=== PATIENT | male | born 1970 | race Caucasian/White ===

== ENCOUNTER 2021-06-23 06:08 | Observation (INO) ==
--- NOTE | 2021-06-08 12:43 | PAT Medication Instructions ---
Medication Instructions Date of Service June 08, 2021 Home Medications dicyclomine 10 mg capsule 10 mg PO BID fluticasone propionate 50 mcg/actuation nasal spray,suspension (Flonase Allergy Relief) 2 spray INTRANASAL HS loratadine 10 mg tablet 10 mg PO DAILY pantoprazole 20 mg tablet,delayed release (Protonix) 20 mg PO QAM sertraline 50 mg tablet 50 mg PO DAILY trazodone 50 mg tablet 50 mg PO HS triamterene 75 mg-hydrochlorothiazide 50 mg tablet 1 tab PO DAILY escitalopram oxalate 10 mg tablet (Lexapro) 10 mg PO DAILY gabapentin 300 mg capsule (Neurontin) 600 mg PO HS meclizine 25 mg tablet 25 mg PO TID PRN metformin 1,000 mg tablet 1,000 mg PO BID nabumetone 500 mg tablet 500 mg PO BID tramadol 50 mg tablet 50 mg PO Q8H PRN Continue as directed sertraline 50 mg tablet 50 mg PO DAILY escitalopram oxalate 10 mg tablet (Lexapro) 10 mg PO DAILY ASK your surgeon for instructions nabumetone 500 mg tablet 500 mg PO BID DO NOT take the morning of surgery dicyclomine 10 mg capsule 10 mg PO BID loratadine 10 mg tablet 10 mg PO DAILY triamterene 75 mg-hydrochlorothiazide 50 mg tablet 1 tab PO DAILY metformin 1,000 mg tablet 1,000 mg PO BID Take morning of surgery With a small sip of water, OTHERWISE NOTHING TO EAT OR DRINK AFTER MIDNIGHT: pantoprazole 20 mg tablet,delayed release (Protonix) 20 mg PO QAM meclizine 25 mg tablet 25 mg PO TID PRN (if needed) tramadol 50 mg tablet 50 mg PO Q8H PRN (okay to take up to 4 hours prior to surgery if needed) Take evening before surgery dicyclomine 10 mg capsule 10 mg PO BID fluticasone propionate 50 mcg/actuation nasal spray,suspension (Flonase Allergy Relief) 2 spray INTRANASAL HS trazodone 50 mg tablet 50 mg PO HS gabapentin 300 mg capsule (Neurontin) 600 mg PO HS meclizine 25 mg tablet 25 mg PO TID PRN (if needed) metformin 1,000 mg tablet 1,000 mg PO BID tramadol 50 mg tablet 50 mg PO Q8H PRN (if needed) Other Notes If you have any questions please call us at [phone] or [phone] or [phone] or [phone]
--- NOTE | 2021-06-09 11:27 | Anesthesiology Consultation ---
Date of Service June 09, 2021 Assessment & Plan (1) Encounter for pre-operative examination: Chart Review Chart Review: Acceptable Risk for Surgery (pending PCP clearance 06/11 and preop Covid testing results ) and Patient seen in Pre Admission Testing Awaiting PCP appt scheduled 06/11/21 - Check BSG AM DOS Per PAT appt on 06/09/21, patient resides and works in [facility]. 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 Usually stays home (only goes to work). No known Covid positive contacts or Covid related symptoms. Pt is NOT vaccinated for Covid. No known Covid infection in the past 90 days. Preop Covid testing scheduled 06/21/21= will await results. Educated on importance of self quarantining, social distancing and wearing mask in public both for the pa tient after Covid testing done Teaching & Discussion Pre-Anesthesia Teaching/Discussion Notes: Instructed NPO after midnight before surgery,except medications with 15 cc of water. Medication instructions provided according to the PAT guidelines. History Surgery Operation Date: 06/23/21 07:45 Proposed Procedures p C5-C7 Anterior Cervical Discectomy Fusion, Spinal Cord Monitoring - Bhargav Miranda DO Height/Weight Height: 6 ft 1 in Weight: 132.2 kg Allergies Allergy/AdvReac Type Severity Reaction Status Date / Time iodine AdvReac Unknown FAINTS AT Verified 06/03/21 11:08 THE SMELL OF IODINE Medications Home Medications Medication Instructions Recorded Confirmed Last Taken dicyclomine 10 mg capsule 10 mg PO BID 07/27/18 06/03/21 Unknown fluticasone propionate 50 2 spray INTRANASAL 07/27/18 06/03/21 Unknown mcg/actuation nasal spray,suspension (Flonase Allergy Relief) loratadine 10 mg tablet 10 mg PO DAILY 07/27/18 06/03/21 Unknown pantoprazole 20 mg tablet,delayed 20 mg PO QAM 07/27/18 06/03/21 Unknown release (Protonix) sertraline 50 mg tablet 50 mg PO DAILY 07/27/18 06/03/21 Unknown trazodone 50 mg tablet 50 mg PO HS 07/27/18 06/03/21 Unknown triamterene 75 1 tab PO DAILY 07/27/18 06/03/21 Unknown mg-hydrochlorothiazide 50 mg tablet escitalopram oxalate 10 mg tablet 10 mg PO DAILY 06/03/21 06/03/21 Unknown (Lexapro) gabapentin 300 mg capsule 600 mg PO HS 06/03/21 06/03/21 Unknown (Neurontin) meclizine 25 mg tablet 25 mg PO TID PRN 06/03/21 06/03/21 Unknown metformin 1,000 mg tablet 1,000 mg PO BID 06/03/21 06/03/21 Unknown nabumetone 500 mg tablet 500 mg PO BID 06/03/21 06/03/21 Unknown tramadol 50 mg tablet 50 mg PO Q8H PRN 06/03/21 06/03/21 Unknown Past Medical History Medical History Anxiety Depression Diabetes mellitus, type 2 Glucose well controlled and stable per patient GERD (gastroesophageal reflux disease) Controlled and stable Kidney stone HX- no recent or current Menieres disease No recent vertigo issues Sleep apnea CPAP Exercise / Class Metabolic Activity II 4-5 Yardwork/Stairs/Walk up hill (one flight of stairs - no chest pain or SOB ) Past Family History Family History Grandfather (Maternal) Family history of diabetes mellitus Past Surgical History Surgical History History of arthroscopy History of colonoscopy History of cystoscopy WITH STENT FOR KIDNEY STONE History of knee surgery RIGHT-CARTILAGE REMOVAL History of tooth extraction WISDOM TEETH Past Anesthesia History No Hx of Anesthesia Complications and No Family Hx of Anesthesia Complications History of PONV No Hx of PONV and No Hx of Motion Sickness STOP BANG Total 6 Social History Smoking Status: Never smoker Do You Dip or Chew Tobacco: No Hx Alcohol Use: No Hx Substance Use: No substance use type: does not use Review of Systems Patient denies chest pain, shortness of breath, dyspnea on exertion, cough, wheezing, palpitations. No hx of seizures, stroke, [place]. No hx of blood clots or blood transfusions Physical Exam Vital Signs VITALS BP 135/77 P 57 TEMP 98.4 SP02 96% RESP 16 Constitutional no acute distress ENMT Mouth: no TMJ clicking Thyromental Distance: > or= 3.5 Finger Breadths (3.5) Mallampati Class: IV Jacinto to molar Neck + short neck, + thick neck and + limited neck extension (mild ) Respiratory normal respiratory effort; no respiratory distress Auscultation: lungs clear to auscultation bilaterally; no wheezes Cardiovascular Rate/Rhythm: regular rate and regular rhythm Heart Sounds: no murmur Vessels: no carotid bruit Musculoskeletal Spine: no pain with cervical ROM Extremities: extremities normal to inspection Psychiatric Orientation: alert Lab Results Anesthesia Preop Results Results Anesthesia Widget: WBC 6.31 K/uL (4.8-10.8) 06/09/21 Hgb 15.0 g/dL (14.0-18.0) 06/09/21 Hct 42.8 % (42-52) 06/09/21 Plt 179 K/uL (130-400) 06/09/21 Na 140 mmol/L (136-145) 06/09/21 K 3.3 mmol/L (3.5-5.1) L 06/09/21 Cl 106 mmol/L (98-107) 06/09/21 CO2 27 mmol/L (21-32) 06/09/21 BUN 16 mg/dl (7-18) 06/09/21 Creat 1.20 mg/dl (0.6-1.4) 06/09/21 Glucose Level 141 mg/dl (70-99) H 06/09/21 PT 11.5 Seconds (9.0-12.0) 06/09/21 PTT 28.1 Seconds (21.0-31.0) 06/09/21 INR 1.1 (0.9-1.1) 06/09/21 HA1c 6.0 % (4.5-5.6) H 06/09/21 Urine Color Yellow 06/09/21 Urine Appearance Clear (Clear) 06/09/21 Urine pH 6.0 (4.5-7.5) 06/09/21 Urine Specific [place] 1.020 (1.000-1.030) 06/09/21 Urine Protein Negative (Negative) 06/09/21 Urine Glucose (UA) Negative (Negative) 06/09/21 Urine Ketones Negative (Negative) 06/09/21 Urine Blood Negative (Negative) 06/09/21 Urine Nitrite Negative (Negative) 06/09/21 Urine Bilirubin Negative (Negative) 06/09/21 Urine Urobilinogen Negative (Negative) 06/09/21 Urine Leukocyte Esterase Negative (Negative) 06/09/21 Blood Type A Positive 06/09/21 Antibody Screen NEGATIVE 06/09/21 Testing Electrocardiogram Date: 06/09/21 Findings: + SB @ (55 bpm ) Otherwise normal EKG per cardio. Chest X-Ray Date: 06/09/21 Findings: + NAD Minimal linear subsegmental scarring/atelectasis of the lateral left lung base.
[~2021-06-23 06:08] MED LIST: ACETAMINOPHEN 500 MG TAB PO SCH; CeleBREX 200 MG CAP PO SCH; GABAPENTIN 900 MG DOSE PO SCH; LR 15ML/HR IV SCH
[2021-06-23] MEDS ORDERED: ePHEDrine sulfate 50 MG/ML AMP IV PRN (06:24)
[2021-06-23] MEDS ORDERED: ATROPINE SULFATE 0.1 MG/ML 10ML SYR IV PRN (06:24)
[2021-06-23] MEDS ORDERED: ONDANSETRON INJ 2 MG/ML 2 ML VIAL IV PRN ×2 (06:24→14:47)
[2021-06-23] MEDS ORDERED: HYDROmorphone INJ 1 MG/ML SYRINGE IV PRN ×2 (06:24→14:47)
[2021-06-23] MEDS ORDERED: MIDAZOLAM HCL 1 MG/ML 2ML VIAL ONE ×2 (07:07→07:22)
[2021-06-23] MEDS ORDERED: LIDOCAINE 2% 2 ML VIAL/AMP(20MG/ML) INFIL ONE (07:07)
[2021-06-23] MEDS ORDERED: PROPOFOL IV EMULSION 10 MG/ML 20 ML VIAL IV ONE (07:07)
[2021-06-23] MEDS ORDERED: fentaNYL citrate 100 MCG/2 ML VIAL ONE ×2 (07:07→08:10)
[2021-06-23] MEDS ORDERED: DEXAMETHASONE SOD INJ 4 MG/ML VIAL ONE (07:15)
[2021-06-23] MEDS ORDERED: ONDANSETRON INJ 2 MG/ML 2 ML VIAL ONE (07:15)
--- NOTE | 2021-06-23 07:33 | History & Physical Bridge Note ---
Date of Service June 23, 2021 History & Physical Bridge Note I have examined the patient, reviewed the History & Physical and in the interval since the performance of the History & Physical I have noted the following changes of clinical significance: no changes noted
--- NOTE | 2021-06-23 07:34 | History & Physical Report ---
Date of Service June 23, 2021 Assessment & Plan (1) Cervical stenosis of spinal canal: Plan: C5-C7 anterior cervical discectomy and fusion History of Present Illness Chief Complaint: Neck and arm pain Primary Care Provider: Yinka Chaudhari MD This is a 51-year-old male presents with car persistent neck and arm pain after failing course of nonoperative care is here for surgical invention. Allergies Allergy/AdvReac Type Severity Reaction Status Date / Time iodine AdvReac Unknown FAINTS AT Verified 06/23/21 06:47 THE SMELL OF IODINE Home Medications Medication Instructions Recorded Confirmed Type dicyclomine 10 mg capsule 10 mg PO BID 07/27/18 06/23/21 History fluticasone propionate 50 2 spray INTRANASAL HS 07/27/18 06/23/21 History mcg/actuation nasal spray,suspension (Flonase Allergy Relief) loratadine 10 mg tablet 10 mg PO DAILY 07/27/18 06/23/21 History pantoprazole 20 mg tablet,delayed 20 mg PO QAM 07/27/18 06/23/21 History release (Protonix) sertraline 50 mg tablet 50 mg PO DAILY 07/27/18 06/23/21 History trazodone 50 mg tablet 50 mg PO HS 07/27/18 06/23/21 History triamterene 75 1 tab PO DAILY 07/27/18 06/23/21 History mg-hydrochlorothiazide 50 mg tablet escitalopram oxalate 10 mg tablet 10 mg PO DAILY 06/03/21 06/23/21 History (Lexapro) gabapentin 300 mg capsule 600 mg PO HS 06/03/21 06/23/21 History (Neurontin) meclizine 25 mg tablet 25 mg PO TID PRN 06/03/21 06/23/21 History metformin 1,000 mg tablet 1,000 mg PO BID 06/03/21 06/23/21 History nabumetone 500 mg tablet 500 mg PO BID 06/03/21 06/23/21 History tramadol 50 mg tablet 50 mg PO Q8H PRN 06/03/21 06/23/21 History Past Med/Surg History Medical History Anxiety Depression Diabetes mellitus, type 2 Glucose well controlled and stable per patient GERD (gastroesophageal reflux disease) Controlled and stable Kidney stone HX- no recent or current Menieres disease No recent vertigo issues Sleep apnea CPAP Surgical History History of arthroscopy History of colonoscopy History of cystoscopy WITH STENT FOR KIDNEY STONE History of knee surgery RIGHT-CARTILAGE REMOVAL History of tooth extraction WISDOM TEETH Family History Grandfather (Maternal) Family history of diabetes mellitus Social History (Updated 06/03/21 @ 11:[address]ardenas RN) Smoking Status: Never smoker Second Hand Exposure: No; Do You Dip or Chew Tobacco: No; Hx Alcohol Use: No Hx Substance Use: No Preferred Language: Malawian Communication Ability: Effective Director Of Cardiac Cath Lab Required: No Beliefs That Will Affect Care: None Current Living Situation: Spouse and Family current occupational status: employed current occupation: DISPATCHER SERVICE Other Information That Helps Us Care for You: No Feels Safe at Home: Yes Safety Concerns: Feels Safe At This Time Assistive Devices: Glasses Physical Exam Physical Exam: Patient is alert and oriented Heart regular rate and rhythm Lungs clear to auscultation Results & Data ([facility]) Vital Signs (Past 12 Hours) Vital Signs Temp Pulse Resp BP Pulse Ox 06/23/21 06:57 36.7 C 52 L 18 140/76 98
[2021-06-23] MEDS ORDERED: KETAMINE 50 MG/5 ML SYRINGE ONE (08:02)
[2021-06-23] MEDS ORDERED: GLYCOPYRROLATE 0.2 MG/ML VIAL ONE ×2 (08:02→09:11)
[2021-06-23] MEDS ORDERED: FLOSEAL HEMOSTATIC MATRIX 10ML TOP ONE (08:25)
[2021-06-23] MEDS ORDERED: NEOSTIGMINE METHYLSULFATE 1 MG/ML 10ML VIAL ONE (09:11)
--- NOTE | 2021-06-23 09:21 | Operative Report ---
Post Operative Report Pre & Post Diagnosis Operation Date: 06/23/21 07:45 Pre-Op Diagnosis: Cervical spinal stenosis with radiculopathy Post-Op Diagnosis: Same I identified the patient and participated in the time-out.: Yes Procedure Operation Date: 06/23/21 07:45 Actual Procedures #1 anterior cervical discectomy with bilateral foraminotomies C5-6 C6-7. #2 intracervical arthrodesis C5-6 C6-7. #3 placement 8 mm spiral cage filled with I factor at C5-C6 and 9 mm cage filled with I factor at C6-C7. #4 application of morel plate and screws across C5-6 C6-7. Surgeon Bhargav Miranda, DO Knitting Machine Fixer Marietta Palacios Estimated Blood Loss 10 Findings See Below Patient is 6 foot 1 inches tall weighing over 130 kg with a BMI of 38. The patient's body habitus did contribute to significant difficulty throughout the procedure with patient positioning and exposure adding at least 50% increase to the operative time. Specimens None Indications This is a 51-year-old male presents with the above-mentioned diagnosis after failing stents course of nonoperative care is here for surgical intervention. Description of Procedure Patient was met with identified informed consent obtained. Patient was then taken to the operative suite underwent a patient placed in supine position Sujit table with head Cabrera head turbine operator. All bony prominences well-padded eyes inspected to ensure no external pressure placed upon the. This point the anterior cervical spine was prepped and draped in a sterile fashion. Sharp dissection from the skin and blunt dissection with the assistance of bipolar cautery performed down to and exposing the anterior cervical spine from C5-C7. A self-retaining retractor was placed. The performed a complete discectomy of C5-C6 out to the uncovertebral joints bilaterally. [place] distraction pins utilized to assist in visualization. Removed all posterior annular fibers longitudinal ligament bilateral foraminotomies performed. Endplates burred to subcortical bleeding bone and then 8 mm spiral cage filled with I factor tapped in position. Distracting apparatus was removed and I proceeded to see 6 C7. Again complete discectomy performed of the uncovertebral joints bilaterally. [place] distracting pins again utilized. Removed all posterior annular fibers longitudinal ligament and bilateral foraminotomies for complete decompression. Endplates burred to subcortical bleeding bone and a 9 mm spiral cage filled with I factor tapped in position. Distracting apparatus was removed all anterior osteophytes burred to a smooth cortical surface and a 5 complete screws applied with the assistance of fluoroscopy. Incision was then copiously irrigated explored to ensure no damage to surrounding structures remaining bleeding. 10 round SUSAN drain inserted. Incision was then closed with 2 Vicryl in a fashion of 4 Monocryl for final skin closure. Steri-Strip sterile dressings placed. Patient will continue PACU stable condition. Please note spinal cord monitoring was utilized at the procedure no changes noted. Lastly Marietta Palacios was present at the entire surgeon while the patient positioning complex portions of the surgery and final skin closure. I attest to the content of the Intraoperative Record and any orders documented therein. Any exceptions are noted below.
[2021-06-23] MEDS: fentaNYL citrate 100 MCG/2 ML VIAL IV PRN ×3 (09:57→10:50)
--- NOTE | 2021-06-23 09:59 | Fluoroscopy Report ---
FL cervical 2-3V HISTORY: 51 years-old Male C5-C7 DISCECTOMY AND FUSION COMPARISON: None TECHNIQUE: 3 spot fluoroscopic images of the cervical spine were obtained utilizing 11.8 seconds fluo roscopy time FINDINGS: Anterior plate and screw fusion with discectomy at what appears to be the C5-C7 levels. The hardware appears to be intact. Radiopaque surgical sponges within the anterior soft tissues. Endotracheal tube is noted. A radiopaque sponge projects over the upper cervical spine soft tissues. IMPRESSION: Fluoroscopic assistance as above. ACT 112: Negative or not required by law. The above report was generated using voice recognition software. It may contain grammatical, syntax o r spelling errors. Electronically signed by: Roberto Betts M.D. 06/23/2021 9:58 AM
[2021-06-23] MEDS ORDERED: oxyCODONE HCL IR 5 MG TAB (IMMEDIATE RELEASE) ONE (12:48)
--- NOTE | 2021-06-23 13:06 | Anesthesiology Progress Note ---
Date of Service June 23, 2021 Anesthesia Post Procedure Vital Signs Vital Signs: Temp Pulse Pulse Resp BP Pulse Ox 06/23/21 12:40 36.8 C 81 18 134/78 94 06/23/21 12:10 78 18 140/76 94 06/23/21 11:40 36.3 C L 85 18 137/82 93 06/23/21 11:15 77 16 128/78 93 06/23/21 10:45 67 15 136/70 94 06/23/21 10:30 36.4 C L 70 17 151/81 H 94 06/23/21 10:20 71 18 135/71 96 06/23/21 10:10 69 16 137/67 95 06/23/21 10:00 70 16 138/75 95 06/23/21 09:50 65 12 137/76 96 06/23/21 09:40 71 16 123/47 L 96 06/23/21 09:31 36.4 C L 83 15 155/77 H 98 06/23/21 06:57 36.7 C 52 L 18 140/76 98 Pain Intensity Posterior Neck: Pain Intensity: 5 Transfer of Care Handoff Completed per policy Notes Mental Status: alert / awake / arousable and participated in evaluation Patient Amnestic to Procedure: Yes Nausea / Vomiting: adequately controlled Pain: adequately controlled Airway Patency, RR, SpO2: stable & adequate BP & HR: stable & adequate Hydration State: stable & adequate Anesthetic Complications: no major complications apparent and Pt Satisfied with anesthetic care
[2021-06-23] MEDS ORDERED: PROMETHAZINE HCL 12.5 MG in SODIUM CHLORIDE 0.9% 50 ML IV PRN (14:47)
[2021-06-23] MEDS ORDERED: LORazepam 0.5 MG TAB PO PRN (14:47)
[2021-06-23] MEDS ORDERED: METOCLOPRAMIDE HCL INJ 5 MG/ML 2 ML VIAL IV PRN (14:47)
[2021-06-23] MEDS ORDERED: diphenhydrAMINE Capsule 25 MG CAP PO PRN (14:47)
[2021-06-23] MEDS ORDERED: SOD PHOSPHATE/SOD BIPHOSPHATE ENEMA 132 ML BTL PR PRN (14:47)
[2021-06-23] MEDS ORDERED: dexAMETHasone 8 MG in SYRINGE 0 ML IV PRN (14:47)
[2021-06-23] MEDS ORDERED: ACETAMINOPHEN 500 MG TAB PO PRN (14:47)
[2021-06-23] MEDS ORDERED: bisacodyL 10 MG SUPP PR PRN (14:47)
[2021-06-23] MEDS ORDERED: ALUMINUM/MAGNESIUM SUSP 30 ML UDC PO PRN (14:47)
[2021-06-23] MEDS ORDERED: DO NOT ADMINISTER FLU VACCINE PRN (14:47)
[2021-06-23] MEDS ORDERED: RACEPINEPHRINE 2.25% NEBU SOLN 0.5 ML VIAL INH PRN (14:47)
[2021-06-23] MEDS ORDERED: NALOXONE HCL 0.4 MG/1 ML VIAL/CARP IV PRN (14:47)
[2021-06-23] MEDS ORDERED: ACETAMINOPHEN 1,000 MG/100 ML VIAL IV PRN (14:47)
[2021-06-23] MEDS ORDERED: ONDANSETRON 4 MG OD TAB PO PRN (14:47)
[2021-06-23] MEDS ORDERED: traMADol HCL 50 MG TABLET PO PRN (14:47)
[2021-06-23] MEDS ORDERED: DO NOT ADMINISTER PNEUMOCOCCAL VACCINE PRN (14:47)
[2021-06-23] MEDS ORDERED: PHARMACY GLYCEMIC MGMT CONSULT PRN (14:47)
[2021-06-23] MEDS ORDERED: LORazepam 0.5 MG/1 ML VIAL IV PRN (14:47)
[2021-06-23] MEDS ORDERED: FAMOTIDINE 20 MG TAB PO PRN (14:47)
[2021-06-23] MEDS ORDERED: hydrOXYzine HCl 25 MG TAB PO PRN (14:47)
[2021-06-23] MEDS ORDERED: HYDROmorphone INJ 0.5 MG/0.5 ML SYR IV PRN (14:47)
[2021-06-23] MEDS ORDERED: MAGNESIUM HYDROXIDE SUSP 30 ML UDC PO PRN (14:47)
[2021-06-23] MEDS ORDERED: MECLIZINE HCL 25 MG TAB PO PRN (14:47)
[2021-06-23] MEDS: SODIUM CHLORIDE 0.9% 1000ML 1,000 ML IV SCH ×2 (15:12→21:48)
--- NOTE | 2021-06-23 16:31 | Internal Medicine Consult Note ---
Date of Consultation June 23, 2021 History of Present Illness Reason for Consultation: Medical management Requesting Physician: Dr Miranda Attending Physician: Bhargav Miranda, Allergies Allergy/AdvReac Type Severity Reaction Status Date / Time iodine AdvReac Unknown FAINTS AT Verified 06/23/21 06:47 THE SMELL OF IODINE Home Medications Medication Instructions Recorded Confirmed Type dicyclomine 10 mg capsule 10 mg PO BID 07/27/18 06/23/21 History fluticasone propionate 50 2 spray INTRANASAL HS 07/27/18 06/23/21 History mcg/actuation nasal spray,suspension (Flonase Allergy Relief) loratadine 10 mg tablet 10 mg PO DAILY 07/27/18 06/23/21 History pantoprazole 20 mg tablet,delayed 20 mg PO QAM 07/27/18 06/23/21 History release (Protonix) trazodone 50 mg tablet 50 mg PO HS 07/27/18 06/23/21 History triamterene 75 1 tab PO DAILY 07/27/18 06/23/21 History mg-hydrochlorothiazide 50 mg tablet escitalopram oxalate 10 mg tablet 10 mg PO DAILY 06/03/21 06/23/21 History (Lexapro) gabapentin 300 mg capsule 600 mg PO HS 06/03/21 06/23/21 History (Neurontin) meclizine 25 mg tablet 25 mg PO TID PRN 06/03/21 06/23/21 History metformin 1,000 mg tablet 1,000 mg PO BID 06/03/21 06/23/21 History nabumetone 500 mg tablet 500 mg PO BID 06/03/21 06/23/21 History tramadol 50 mg tablet 50 mg PO Q8H PRN 06/03/21 06/23/21 History oxycodone 5 mg tablet 5 mg PO Q6H PRN #20 tab 06/23/21 Rx tramadol 50 mg tablet 50 mg PO Q6H PRN #20 tab 06/23/21 Rx Patient History Medical History Anxiety Depression Diabetes mellitus, type 2 Glucose well controlled and stable per patient GERD (gastroesophageal reflux disease) Controlled and stable Kidney stone HX- no recent or current Menieres disease No recent vertigo issues Sleep apnea CPAP Surgical History History of arthroscopy History of colonoscopy History of cystoscopy WITH STENT FOR KIDNEY STONE History of knee surgery RIGHT-CARTILAGE REMOVAL History of tooth extraction WISDOM TEETH Family History Grandfather (Maternal) Family history of diabetes mellitus Social History (Updated 06/03/21 @ 11:[address]ardenas RN) Smoking Status: Never smoker Second Hand Exposure: No; Do You Dip or Chew Tobacco: No; Hx Alcohol Use: No Hx Substance Use: No Preferred Language: Kinyarwanda Communication Ability: Effective Supervisor Rice Milling Required: No Beliefs That Will Affect Care: None Current Living Situation: Spouse and Family current occupational status: employed current occupation: EMERGENCY SERVICE WORKER Other Information That Helps Us Care for You: No Feels Safe at Home: Yes Safety Concerns: Feels Safe At This Time Assistive Devices: Glasses Results & Data ([facility]) Vital Signs (Past 12 Hours) Vital Signs Temp Pulse Pulse Resp BP Pulse Ox Pulse Ox 06/23/21 15:48 36.8 C 76 18 129/76 96 06/23/21 15:17 36.9 C 80 18 155/83 H 94 06/23/21 14:58 68 15 94 06/23/21 14:47 36.8 C 86 18 150/92 H 96 96 06/23/21 14:30 36.0 C L 88 18 139/83 95 06/23/21 13:40 36.0 C L 84 18 123/58 L 94 06/23/21 13:10 36.7 C 87 18 130/73 95 06/23/21 12:40 36.8 C 81 18 134/78 94 06/23/21 12:10 78 18 140/76 94 06/23/21 11:40 36.3 C L 85 18 137/82 93 06/23/21 11:15 77 16 128/78 93 06/23/21 10:45 67 15 136/70 94 06/23/21 10:30 36.4 C L 70 17 151/81 H 94 06/23/21 10:20 71 18 135/71 96 06/23/21 10:10 69 16 137/67 95 06/23/21 10:00 70 16 138/75 95 06/23/21 09:50 65 12 137/76 96 06/23/21 09:40 71 16 123/47 L 96 06/23/21 09:31 36.4 C L 83 15 155/77 H 98 06/23/21 06:57 36.7 C 52 L 18 140/76 98
--- NOTE | 2021-06-23 16:56 | Consultation ---
Date of Consultation June 23, 2021 Assessment & Plan (1) S/P spinal surgery: Post op day#0 S/P ACDF C5-C7 by Dr Ruth MTZ #10 mL -pain management per ortho -wound management per ortho -PT/OT as appropriate -DVT prophylaxis per ortho -incentive spirometry -monitor H&H for acute blood loss anemia; preop Hgb: 15 (2) Diabetes mellitus, type 2: A1c 6.0 11/21/2020 -Hold home metformin -Basal bolus insulin per protocol. Glycemic pharmacy on board, appreciate placing it management (3) Menieres disease: -Hold triamterene/HCTZ tomorrow and reassess (4) Sleep apnea: -Hold CPAP currently s/p ACDF (5) Anxiety: Depression -Continue Lexapro DVT Prophylaxis -SCDs per Ortho Disposition per primary service Follows with Dr Chaudhari for routine care Pt was seen and care coordinated with Dr Coppola. See addendum Thank you for this consultation. We will follow the patient with you during their hospital stay. You can reach a member of the [facility] Hospitalist Team 05/06 via pager [employer] Supervising Physician Co-Signing Physician Notes I saw this patient with the physician acquisitions assistant, I participated in the history, physical, review of systems, and physical exam. I reviewed the medications with the patient and the physician acquisitions assistant and helped reconcile the medications. I helped take a detailed family and social history as well. I formulated the assessment and plan personally with the physician acquisitions assistant and went over it wi th the patient. Physical Exam Gen-AAO x 3, NAD, Afebrile, +Neck Collar, Obese, +Drain Head-NCAT, EOMI, PERRLA, Anicteric Sclera, No Posterior Pharyngeal Erythema Neck-Supple, No JVD, No Thyromegaly, No Masses, No LAD, No Bruits Lungs-Clear to Auscultation Bilaterally, No Rales, No Rhonchi, No Wheezing, No Crepitus Chest-No S4, +S1, +S2, No S3, No Murmurs, No Rubs, No Gallops, No Ectopy Abdomen-Soft, Bowel Sounds Present, Non Tender, Non Distended, No Hepatomegaly, No Splenomegaly, No Palpable Masses, No Rebound, No Rigidity, No Guarding Musculoskeletal-Full Range of Motion Bilaterally, No CVAT Extremities-No Cyanosis, No Clubbing, No Edema, SCDs Nuero-Cranial Nerves II-XII grossly intact, Motor WNL, DTRs WNL, Strength WNL, Non Focal Psych-Normal Mood History of Present Illness Requesting Physician: Dr. Miranda Reason for Consultation: Postop medical management Attending Physician: Bhargav Miarnda, DO History of Present Illness Patient is 51-year-old male with PMH DM II, Mnire's, CHRISTIANNE, dyslipidemia, anxiety, GERD, fatty liver, obesity seen in medical consultation s/p ACDF today by Dr. Miranda. Postop patient reports some left arm discomfort which he had prior to surgery as well and feels pain is controlled with current pain medications. Was able to drink fluids and tolerate liquid diet. Denies any choking. Last BM yesterday. Denies fever/chills, diaphoresis, N/V/D/C, DONOVAN, dizziness, CP, SOB, palpitations, cough, sore abdominal pain, paresthesias, extremity weakness, extremity edema, rashes, urinary symptoms. Allergies Allergy/AdvReac Type Severity Reaction Status Date / Time iodine AdvReac Unknown FAINTS AT Verified 06/23/21 06:47 THE SMELL OF IODINE Home Medications Medication Instructions Recorded Confirmed Type dicyclomine 10 mg capsule 10 mg PO BID 07/27/18 06/23/21 History fluticasone propionate 50 2 spray INTRANASAL HS 07/27/18 06/23/21 History mcg/actuation nasal spray,suspension (Flonase Allergy Relief) loratadine 10 mg tablet 10 mg PO DAILY 07/27/18 06/23/21 History pantoprazole 20 mg tablet,delayed 20 mg PO QAM 07/27/18 06/23/21 History release (Protonix) trazodone 50 mg tablet 50 mg PO HS 07/27/18 06/23/21 History triamterene 75 1 tab PO DAILY 07/27/18 06/23/21 History mg-hydrochlorothiazide 50 mg tablet escitalopram oxalate 10 mg tablet 10 mg PO DAILY 06/03/21 06/23/21 History (Lexapro) gabapentin 300 mg capsule 600 mg PO HS 06/03/21 06/23/21 History (Neurontin) meclizine 25 mg tablet 25 mg PO TID PRN 06/03/21 06/23/21 History metformin 1,000 mg tablet 1,000 mg PO BID 06/03/21 06/23/21 History nabumetone 500 mg tablet 500 mg PO BID 06/03/21 06/23/21 History tramadol 50 mg tablet 50 mg PO Q8H PRN 06/03/21 06/23/21 History oxycodone 5 mg tablet 5 mg PO Q6H PRN #20 tab 06/23/21 Rx tramadol 50 mg tablet 50 mg PO Q6H PRN #20 tab 06/23/21 Rx Patient History Medical History (Updated 06/23/21 @ 16:54 by Katharine Butler PA-C) Anxiety Depression Diabetes mellitus, type 2 Glucose well controlled and stable per patient GERD (gastroesophageal reflux disease) Controlled and stable Kidney stone HX- no recent or current Menieres disease No recent vertigo issues Sleep apnea CPAP Surgical History (Updated 06/23/21 @ 16:54 by Katharine Butler PA-C) History of arthroscopy History of colonoscopy History of cystoscopy WITH STENT FOR KIDNEY STONE History of knee surgery RIGHT-CARTILAGE REMOVAL History of tooth extraction WISDOM TEETH Family History Grandfather (Maternal) Family history of diabetes mellitus Social History Smoking Status: Never smoker Second Hand Exposure: No; Do You Dip or Chew Tobacco: No; Hx Alcohol Use: No Hx Substance Use: No Preferred Language: Montenegrin Communication Ability: Effective Networking Technology Instructor Required: No Beliefs That Will Affect Care: None Current Living Situation: Spouse and Family current occupational status: employed current occupation: [employer] Other Information That Helps Us Care for You: No Feels Safe at Home: Yes Safety Concerns: Feels Safe At This Time Assistive Devices: Glasses Review of Systems Review of Systems: All systems reviewed & are unremarkable except as noted in HPI & below Physical Exam Physical Exam: General: no distress, overweight Head: normocephalic, atraumatic Eyes: conjunctiva non-injected, anicteric ENT: normal inspection external ears, nose, mucous membranes moist Neck: + C-collar in place, supple, trachea midline, anterior neck with surgical dressing in place and is dry, SUSAN drain in place with scant amount of serosang uineous drainage Lungs: clear, no respiratory distress, no wheezing/rhonchi/rales CV: RRR, no murmur, no pretibial edema Abd: normal BS, soft, non-tender Ext: no cyanosis, no calf tenderness, bilateral pedal pushes and pulls intact, bilateral presser automatic strength intact, distal pulses intact, sensation to light touch intact Neuro: A&O x 3, no focal deficits noted, normal affect Skin: warm, dry Results & Data ([facility]) Vital Signs (Past 12 Hours) Vital Signs Temp Pulse Pulse Resp BP Pulse Ox Pulse Ox 06/23/21 15:48 36.8 C 76 18 129/76 96 06/23/21 15:17 36.9 C 80 18 155/83 H 94 06/23/21 14:58 68 15 94 06/23/21 14:47 36.8 C 86 18 150/92 H 96 96 06/23/21 14:30 36.0 C L 88 18 139/83 95 06/23/21 13:40 36.0 C L 84 18 123/58 L 94 06/23/21 13:10 36.7 C 87 18 130/73 95 06/23/21 12:40 36.8 C 81 18 134/78 94 06/23/21 12:10 78 18 140/76 94 06/23/21 11:40 36.3 C L 85 18 137/82 93 06/23/21 11:15 77 16 128/78 93 06/23/21 10:45 67 15 136/70 94 06/23/21 10:30 36.4 C L 70 17 151/81 H 94 06/23/21 10:20 71 18 135/71 96 06/23/21 10:10 69 16 137/67 95 06/23/21 10:00 70 16 138/75 95 06/23/21 09:50 65 12 137/76 96 06/23/21 09:40 71 16 123/47 L 96 06/23/21 09:31 36.4 C L 83 15 155/77 H 98 06/23/21 06:57 36.7 C 52 L 18 140/76 98
[2021-06-23] MEDS ORDERED: NovoLIN-N (NPH) PER UNIT CHARGE SQ ONE (17:00)
[2021-06-23] MEDS: INSULIN ASPART 100 UNITS/ML 3 ML PEN SC SCH ×2 (17:17→21:33)
[2021-06-23] MEDS: ceFAZolin 2000MG 2,000 MG/15 ML SYR IV SCH (17:17)
--- NOTE | 2021-06-23 19:40 | Pharmacy Report ---
Pharmacy Glycemic Short Note 2 - Date of Service June 23, 2021 - Glycemic Short BSG Results (Last 24 hours): 06/23/21 06/23/21 06/23/21 06:30 09:34 12:57 POC Glucose 125 H 130 H 155 H 06/23/21 16:19 POC Glucose 141 H OUTPATIENT ANTIDIABETIC REGIMEN: * metformin 1 gm bid * A1c 6 06/09/21 ASSESSMENT: * Patient s/p spinal procedure, POD 0 * Received dexamethasone in OR, therefore anticipate steroid induced hyperglycemia - plan to utilize NPH 0.2 units/kg (adj bw) x 1 * Will plan to start novolog stress 2/3 dosing postop PLAN FOR INPATIENT GLYCEMIC CONTROL: * Hold outpatient oral diabetes medications * Basal insulin * NPH 20 units x 1 * Bolus insulin * NovoLog per scale ACHS or Q6hrs while NPO * Goal Range: Low 110 mg/dL - High 140 mg/dL * Correction Factor: 20 mg/dL/unit * Nutritional / Prandial insulin per carb ratio of 1 unit per 7 grams CHO consumed PLAN FOR DISCHARGE: * A1c 6.0% - goal <7; reasonable to continue home metformin on discharge as long as no contraindications are present
[2021-06-23] MEDS ORDERED: GABAPENTIN 300 MG CAP PO SCH (21:00)
[2021-06-23] MEDS ORDERED: DOCUSATE SODIUM/SENNA 50/8.6MG TAB PO SCH (21:00)
[2021-06-23] MEDS ORDERED: FLUTICASONE PROPIONATE NA SPR 16 GM BTL SCH (21:00)
[2021-06-23] MEDS ORDERED: traZODone HCL 50 MG TAB PO SCH (21:00)
[2021-06-23] MEDS: NABUMETONE 500 MG TABLET PO SCH (21:32)
[2021-06-23] MEDS: DICYCLOMINE HCL 10 MG CAP PO SCH (21:32)
[2021-06-23] MEDS: oxyCODONE HCL IR 5 MG TAB (IMMEDIATE RELEASE) PO PRN (21:48)
[2021-06-24] MEDS ORDERED: INSULIN ASPART 100 UNITS/ML 3 ML PEN SC SCH
[2021-06-24] MEDS: ceFAZolin 2000MG 2,000 MG/15 ML SYR IV SCH (01:51)
[2021-06-24] MEDS: SODIUM CHLORIDE 0.9% 1000ML 1,000 ML IV SCH (04:18)
[2021-06-24] MEDS: oxyCODONE HCL IR 5 MG TAB (IMMEDIATE RELEASE) PO PRN ×2 (05:57→13:19)
[2021-06-24] MEDS: POLYETHYLENE (MIRALAX) 17 GM PACK PO SCH ×2 (05:57→11:03)
[2021-06-24] MEDS: NABUMETONE 500 MG TABLET PO SCH (08:24)
[2021-06-24] MEDS: DICYCLOMINE HCL 10 MG CAP PO SCH (08:25)
[2021-06-24] MEDS: INSULIN ASPART 100 UNITS/ML 3 ML PEN SC SCH ×2 (08:25→12:15)
[2021-06-24] MEDS ORDERED: PANTOprazole 40 MG TAB PO SCH (09:00)
[2021-06-24] MEDS ORDERED: SERTRALINE HCL 50 MG TABLET PO SCH (09:00)
[2021-06-24] MEDS ORDERED: ESCITALOPRAM OXALATE 10 MG TAB PO SCH (09:00)
[2021-06-24] MEDS ORDERED: TRIAMTERENE/HCTZ 37.5/25MG TAB PO SCH (09:00)
[2021-06-24] MEDS ORDERED: LORATADINE 10 MG TAB PO SCH (09:00)
--- NOTE | 2021-06-24 09:56 | Discharge Summary ---
Date of Service June 24, 2021 Admission HPI Per Admitting Provider This is a 51-year-old male presents with car persistent neck and arm pain after failing course of nonoperative care is here for surgical invention. Principal Diagnosis Cervical spinal stenosis with radiculopathy Discharge Data Allergies Allergy/AdvReac Type Severity Reaction Status Date / Time iodine AdvReac Unknown FAINTS AT Verified 06/23/21 06:47 THE SMELL OF IODINE Consultations 06/23/21 14:47 Consult Hospitalist Routine Procedures Performed Operation Date: 06/23/21 07:45 Actual Procedures p C5-C7 Anterior Cervical Discectomy and Fusion, with Spinal Cord Monitoring(Not Applicable) - Bhargav Miranda DO Ordered Studies 06/23/21 07:45 FL cervical 2-3V Routine Hospital Course (1) Cervical stenosis of spinal canal: Patient went anterior cervical discectomy fusion trial as well as taken orthopedic for postop labor postop day 1 he is swallowing well no hoarseness arm symptoms markedly improved. Excellent strength testing. SUSAN drain decreasing probably. Subsequent discharge home. Discharge orders instructions from the chart for further review. Total Time Total Time Spent Total Time Spent (In Minutes): 20 minutes Discharge Plan Discharge Items Patient Disposition: Home - Self-Care Reason For Visit: Spinal Stenosis, Cervical Region Discharge Diagnosis: Cervical spinal stenosis with radiculopathy Activity: As commented below Non-emergency contact: Primary Care Provider Call non-emergency contact if: you have any medication questions Follow-up/Referrals: Yinka Chaudhari MD [Primary Care Provider] - Diet: Regular Addtl Attending Provider Instructions: ACTIVITY RECOMMENDATIONS: SELF CARE INSTRUCTIONS AFTER CERVICAL FUSIONS 1. No smoking. Smoking drastically decreases the chance of a solid fusion. 2. No bending, lifting more than 5 pounds, or twisting (roll like a log when turning in bed). 3. You may shower 3 days after surgery. Thoroughly dry wound. Do not soak in the tub. 4. Cervical collar: Must be worn at all times including sleeping. You may remove the brace only to bath, eat and if you are sitting in a recliner. 5. Please walk as much as you can for exercise. Gradually increase the distance that you walk as your endurance increases. SPECIAL CARE INSTRUCTIONS: VERY IMPORTANT TO READ AND REVIEW A. Do not take any anti-inflammatory medications (i.e. Indocin, Advil, Aspirin, Naprosyn, Aleve, Motrin, etc.) as these may inhibit the chance of a solid fusion. Tylenol is okay to take. B. Your surgical incision has been closed with a cosmetic suture under the skin that will dissolve in about 6 weeks. In 14 days, you can use a pair of clean scissors and cut the suture that is left outside of the skin at the ends of your incision. C. Complications are uncommon, but please contact us if you have any signs or symptoms of: 1. wound infection (fever higher than 102.5 degrees F, redness, separation of wound, drainage, or increasing pain from the incision) 2. blood clots in legs (pain, swelling, redness and warmth in legs) 3. urinary tract infection (fever higher than 102.5 degrees, burning upon urination or increased frequency of urination) 4. nerve problems (inability to walk on your toes or heels, numbness, loss of bowel or bladder control) 5. any other symptoms that concern you. D. Please call the office at if you have any concerns or questions about your operation or recovery. MANAGING PAIN AFTER SPINAL SURGERY 1. Narcotic medication is intended for short-term use and will be provided for surgical pain. Surgical pain usually lasts for a period of 4-6 weeks. Narcotic medication includes Percocet, Vicodin, Darvocet, Tylenol #3 or Lortab. 2. Longer-term pain is more appropriately treated with non-narcotic medication such as Tylenol ES. 3. Muscle spasm is not appropriately treated with narcotics. Muscle relaxers such as Soma, Flexeril or Skelaxin can be used along with Tylenol ES. 4. Remember that we all live with some "aches and pains". This is not unusual or uncommon after an injury or as we get older. 5. We will provide appropriate medication within the normal guidelines of their prescribed use. We will also be very cautious and aware of potential abuse and extended duration of patients' medication needs. 6. Please allow 2-3 days to process refills. Prescriptions will not be mailed but must be picked up at the office. FOLLOW UP VISIT: Keep your scheduled follow-up appointment. Any questions, please call the office at . Pending Studies at Discharge: No Stand-Alone Forms: [facility], Smoking Cessation Medications and DC Order Prescriptions: New tramadol 50 mg tablet 50 mg PO Q6H PRN (Reason: pain, moderate) Qty: 20 RF: 0 oxycodone 5 mg tablet 5 mg PO Q6H PRN (Reason: pain, severe) Qty: 20 RF: 0 Continued trazodone 50 mg Tablet 50 mg PO HS RF: 0 pantoprazole [Protonix] 20 mg Tablet,Delayed Release (Dr/Ec) 20 mg PO QAM RF: 0 triamterene-hydrochlorothiazid 75-50 mg Tablet 1 tab PO DAILY RF: 0 fluticasone propionate [Flonase Allergy Relief] 50 mcg/actuation [place],Suspension 2 spray INTRANASAL HS RF: 0 dicyclomine 10 mg Capsule 10 mg PO BID RF: 0 loratadine 10 mg Tablet 10 mg PO DAILY RF: 0 tramadol 50 mg Tablet 50 mg PO Q8H PRN (Reason: Pain) RF: 0 nabumetone 500 mg Tablet 500 mg PO BID RF: 0 escitalopram oxalate [Lexapro] 10 mg Tablet 10 mg PO DAILY RF: 0 gabapentin [Neurontin] 300 mg Capsule 600 mg PO HS RF: 0 metformin 1,000 mg Tablet 1,000 mg PO BID RF: 0 meclizine 25 mg Tablet 25 mg PO TID PRN (Reason: Vertigo) RF: 0 Discharge Orders: Discharge Order (Routine); Ordered 06/24/21 Ordered By: Bhargav Miranda Admission Data Admit Date/Time: 06/23/21 09:25 Attending Provider: Bhargav Miranda Admit Provider: Bhargav Miranda Primary Care Provider: Yinka Chaudhari Other Providers: Hari Mcclellan
[2021-06-24] MEDS ORDERED: dexAMETHasone 8 MG in SYRINGE 0 ML IV ONE (10:15)
--- NOTE | 2021-06-24 10:33 | Hospitalist Progress Note ---
Date of Service June 24, 2021 Assessment & Plan (1) S/P spinal surgery: Plan: S/P ACDF C5-C7 by Dr Miranda POD #1 Pain is controlled Continue Neck collar Wound management, DVT Px as per ortho PT/OT Continue Incentive spirometry Monitor for postop anemia (2) Diabetes mellitus, type 2: Plan: A1c 6.0 11/21/2020 Hold home metformin Continue Insulin therapy Glycemic pharmacy managing DM (3) Menieres disease: Plan: Resume triamterene/HCTZ (4) Sleep apnea: Plan: Hold CPAP currently s/p ACDF (5) Anxiety: Plan: Depression Continue Lexapro DVT Px SCDs per Ortho Disposition As per primary service Advised to follow up with PCP in 1 week upon discharge Admission and Anticipated Discharge Date Admission Date: June 23, 2021 Subjective Patient is seen and examined at bedside Neck pain at surgical site is controlled Denies any dysphagia, odynophagia, dyspnea, chest pain Plan to be discharged home today Offers no other complaints Review of Systems Review of Systems: All systems reviewed & are unremarkable except as noted in Subjective Physical Exam Physical Exam: Physical Exam: Vitals signs as noted above General Appearance:Obese, no apparent distress Head: normocephalic, Atraumatic Neck: Surgical site in dressing, + drain, + neck collar Eyes: normal inspection, EOMI Neck: supple, Trachea midline Respiratory/Chest: Normal breath sounds, CTA, No accessory muscle use Cardiovascular: S1, S2, No murmur Abdomen/GI:Soft, Non tender, Bowel sounds present Extremities/Musculoskeletal:normal inspection, no edema Neurologic/Psych:AAOX3, grossly no focal neurological deficits Skin: normal color, warm Results & Data Results & Data ([facility]) Vital Signs (Past 12 Hours) Vital Signs Temp Pulse Resp BP Pulse Ox 06/24/21 10:21 36.8 C 65 18 132/78 95 06/24/21 09:28 36.8 C 65 18 132/78 95 06/24/21 07:58 66 20 92 06/24/21 07:12 36.9 C 65 18 139/82 95 06/24/21 05:30 36.5 C 67 16 134/70 95 06/24/21 03:30 36.5 C 75 16 133/75 94 06/24/21 02:47 75 12 96 06/24/21 01:30 36.7 C 77 16 132/76 94 06/24/21 00:52 77 18 93 06/23/21 23:30 36.6 C 78 16 146/80 H 94
[2021-06-24] MEDS ORDERED: metFORMIN HCL 500 MG TAB PO SCH (17:00)
== END 2021-06-24 15:01 | disposition home or self-care (01) ==
LOC: ASU 06:08 → INTOOBSV 09:25 → PACUINP 09:25 → 3E 14:42